=== PATIENT | female | born 1985 | race Caucasian/White ===

== ENCOUNTER 2023-02-27 10:44 | Emergency (ER) | payer MEDICAID ==
[~2023-02-27] VITALS: Ht 160 cm; Wt 73.6 kg
[2023-02-27] MEDS ORDERED: LEVO137T24 PO (10:54)
[2023-02-27] MEDS ORDERED: BUDE10.26 IH (10:54)
[2023-02-27 10:55] VITALS: BP 136/99; PULSE 94; RESP 18; TEMP 98.9
== END 2023-02-27 12:27 | disposition left against medical advice (07) ==
LOC: EMS 10:45
DX: J45.901 Unspecified asthma with (acute) exacerbation (principal); Z53.21 Procedure and treatment not carried out due to patient leaving prior to being seen by health care provider
CPT/HCPCS: 99281; Z7502